=== PATIENT | male | born 1960 | race Caucasian/White ===

== ENCOUNTER → 2020-02-06 16:56 | Outpatient (CLI) | payer MEDICAID, SELFPAY ==
[2020-02-11 04:12] LABS: QNTFERON TB Mitogen Value > 10.00 IU/mL (.); QNTFERON TB Nil Value 0.06 IU/mL (.); QNTFERON TB1+ Ag Value 0.08 IU/mL (.); QNTFERON TB2+ Ag Value 0.07 IU/mL (.)
[2020-02-11 05:04] LABS: QNTIFERON TB Positive Criteria Negative (Negative)
== END ==
PROVIDERS: PCP Family Medicine; Referring Provider Family Medicine; Visit Provider Family Medicine
DX: Z11.1 Encounter for screening for respiratory tuberculosis (principal)
CPT/HCPCS: 36415; 86480

== ENCOUNTER → 2022-04-05 | Outpatient (CLI) | payer MEDICAID, SELFPAY ==
[2022-04-05 18:53] LABS: Hemoglobin A1c 9.4 % (3.8-5.6)
[2022-04-05 18:55] LABS: Anion Gap 9 (5-15); BUN 10 mg/dL (7-18); Calcium,Total 8.9 mg/dL (8.5-10.1); Chloride 101 mmol/L (98-107); Cholesterol 226 mg/dL (200); Creatinine, Serum 0.71 mg/dL (0.70-1.30); EST Glomerular Filtration Rate 118 mL/min (>60); Est Glom Filt Rate - Afr Amer 143 mL/min (>60); Glucose 51 mg/dL (74-106); High Density Lipoprotein 129 mg/dL; Potassium 4.2 mmol/L (3.5-5.1); Sodium Level 135 mmol/L (136-145); Triglycerides 122 mg/dL; Very Low Density Lipoprotein 24 mg/dL (5-40)
== END | disposition home or self-care (01) ==
LOC: MFPLAB 15:37
PROVIDERS: PCP Family Medicine; Referring Provider Family Medicine; Visit Provider Family Medicine
DX: E10.9 Type 1 diabetes mellitus without complications (principal)
CPT/HCPCS: 36415; 80048; 80061; 83036

== ENCOUNTER → 2022-05-15 | Outpatient (CLI) | payer MEDICAID, SELFPAY ==
--- NOTE | 2022-05-15 14:45 | MASS_PTH ---
PATIENT: DANIELE JUÁREZ LOC: [facility] U#:[id number] AGE/SX: 61/M ROOM: RE05/15/[address]: Dr. Santhosh Peter MD : 1960 BED: DIS: 05/15/2022 SPEC #: [id number] RECD: 05/15/22 15:48 STATUS: WESTLEY REMarie #: [id number] BRANDIE: 05/15/22 14:[address]: Santhosh Peter DEPT: SURGICAL PATHOLOGY RECD BY: Krysten Tomas ENTERED: 05/16/22 07:44 SP TYPE: Mass OTHR DR: Dr. Osmar Corcoran MD Tissues: Axilla, NOS Procedures: Surgery Specimen Level III HEADER OPERATION: Excisional biopsy left axillary mass PRE-OP DIAGNOSIS: Left axillary mass TISSUE SUBMITTED: Left axillary mass MICROSCOPIC DIAGNOSIS Left axillary mass, excisional biopsy: Epidermal inclusion cyst. AM:brian 05/17/2022 MICROSCOPIC DESCRIPTION Slides are reviewed. GROSS DESCRIPTION Received in fixative is one container labeled with the patient's name and designated left axillary mass. The specimen consists of a العراقي-white nodule measuring 1.5 x 1 x 0.7 cm. The specimen is inked, serially sectioned and reveals a cyst filled with العراق[place]-white cheesy material. The entire specimen is submitted in one cassette. / SJ:rg 05/16/2022 TC:5 CPT: 36350
== END | disposition home or self-care (01) ==
LOC: LABSPEC 15:51
PROVIDERS: PCP Family Medicine; Visit Provider Surgery
DX: L72.0 Epidermal cyst (principal)
CPT/HCPCS: 88305; 88304